=== PATIENT | female | born 1995 | race Caucasian/White ===

== ENCOUNTER 2016-12-09 14:40 | Emergency (ER) | payer BC, OTHER ==
[2016-12-09] MEDS ORDERED: ONDANSETRON 4 MG TAB.RAPDIS SL ONE (17:59)
--- NOTE | 2016-12-09 18:01 | ER Document Report ---
ED Medical Screen (RME) - General Chief Complaint: Abdominal Pain Stated Complaint: ABDOMINAL PAIN Time Seen by Provider: 12/09/16 17:56 Mode of Arrival: Ambulatory Information source: Patient TRAVEL OUTSIDE OF THE [place] IN LAST 30 DAYS: No - HPI Patient complains to provider of: Pelvic pain, recent fall, vomiting Onset: Other - 2 days Notes: 12/09/16 18:00 Patient is a 21-year-old female who presents to the emergency room for 2 day history of pelvic pain, vomiting, stomach cramping, cold chills, decreased sleeping, left throat pain, she reports positive sick contacts, and had a slip and fall at work 2 days ago injuring her left pelvis - Related Data Allergies/Adverse Reactions: CATS Allergy (Uncoded 12/09/16 14:44) Past Medical History Renal/ Medical History: Denies: Hx Peritoneal Dialysis Physical Exam - Vital signs Vitals: Temp Pulse Resp BP Pulse Ox 98.4 F 79 16 127/85 H 98 12/09/16 14:44 12/09/16 14:44 12/09/16 14:44 12/09/16 14:44 12/09/16 14:44 Course - Vital Signs Vital signs: Temp Pulse Resp BP Pulse Ox 98.4 F 79 16 127/85 H 98 12/09/16 14:44 12/09/16 14:44 12/09/16 14:44 12/09/16 14:44 12/09/16 14:44
[2016-12-09 18:31] LABS: ABSOLUTE EOSINOPHILS # (AUTO) 0.2 10^3/uL (0.0-0.6); ABSOLUTE LYMPHOCYTES (AUTO) 2.8 10^3/uL (0.5-4.7); ABSOLUTE MONOCYTES (AUTO) 0.6 10^3/uL (0.1-1.4); ABSOLUTE NEUT (AUTO) 8.6 10^3/uL (1.7-8.2); BASOPHILS % (AUTO) 0.2 % (0-2); EOSINOPHILS % (AUTO) 1.4 % (0-6); HEMATOCRIT 39.8 % (36.0-47.0); HEMOGLOBIN 13.2 g/dL (12.0-15.5); HGB HCT DIFFERENCE -0.2; LYMPHOCYTES % (AUTO) 22.9 % (13-45); MEAN CORPUSCULAR HEMOGLOBIN 28.5 pg (27.0-33.4); MEAN CORPUSCULAR HGB CONC 33.3 g/dL (32.0-36.0); MEAN CORPUSCULAR VOLUME 86 fl (80-97); RED BLOOD COUNT 4.65 10^6/uL (3.72-5.28); RED CELL DISTRIBUTION WIDTH 14.4 % (11.5-14.0); SEGMENTED NEUTROPHILS % (AUTO) 70.5 % (42-78); WHITE BLOOD COUNT 12.3 10^3/uL (4.0-10.5)
[2016-12-09 18:32] LABS: APPEARANCE,URINE CLOUDY; BILIRUBIN,URINE NEGATIVE (NEGATIVE); GLUCOSE, URINE NEGATIVE (NEGATIVE); KETONES,URINE TRACE mg/dL (NEGATIVE); LEUKOCYTE ESTERASE,URINE NEGATIVE (NEGATIVE); NITRITE,URINE NEGATIVE (NEGATIVE); PROTEIN,URINE NEGATIVE (NEGATIVE); UROBILINOGEN,URINE NEGATIVE mg/dL (<2.0)
[2016-12-09 18:59] LABS: ALANINE AMINOTRANSFERASE 25 U/L (9-52); ALBUMIN 4.2 g/dL (3.5-5.0); ALKALINE PHOSPHATASE 105 U/L (38-126); ANION GAP 11 (5-19); ASPARTATE AMINO TRANSFERASE 16 U/L (14-36); BILIRUBIN,DIRECT 0.2 mg/dL (0.0-0.4); BILIRUBIN,TOTAL 1.1 mg/dL (0.2-1.3); BLOOD UREA NITROGEN 5 mg/dL (7-20); CALCIUM 9.2 mg/dL (8.4-10.2); CARBON DIOXIDE 25 mmol/L (22-30); CHLORIDE 105 mmol/L (98-107); CREATININE RESULT 0.63 mg/dL (0.52-1.25); GLUCOSE 88 mg/dL (75-110); LIPASE 52.3 U/L (23-300); POTASSIUM 3.9 mmol/L (3.6-5.0); SODIUM 141.1 mmol/L (137-145); TOTAL PROTEIN 7.3 g/dL (6.3-8.2)
[2016-12-09] MEDS ORDERED: HYDROCODONE/ACETAMINOPHEN 5-325 MG TABLET PO ONE (19:13)
[2016-12-09] MEDS ORDERED: IBUPROFEN 800 MG TABLET PO ONE (19:13)
--- NOTE | 2016-12-09 19:16 | ER Document Report ---
ED General - General Chief Complaint: Abdominal Pain Stated Complaint: ABDOMINAL PAIN Time Seen by Provider: 12/09/16 17:56 Mode of Arrival: Ambulatory Information source: Patient Notes: Presents with a 2 day history of abdominal pain, nausea and vomiting. Patient additionally complains of sore throat for the past 3 days. Patient states that abdominal pain comes and goes and make her feel like she needs to have a bowel movement. Patient currently denies any abdominal tenderness at this time. Patient does complain of left inguinal tenderness. Patient does state that she recently fell 2 days ago hitting her knee and jarring her left hip which coincided with when her inguinal tenderness started. Patient denies any fever or urinary symptoms. TRAVEL OUTSIDE OF THE [place] IN LAST 30 DAYS: No - HPI Onset: Other - 2 Days Onset/Duration: Persistent - sore throat, Gone - pelvic pain Quality of pain: Achy Pain Level: 3 Associated symptoms: Nausea, Vomiting, Sore throat. denies: Chest pain, Nonproductive cough, Productive cough, Diarrhea Exacerbated by: Denies Relieved by: Denies Similar symptoms previously: Yes Recently seen / treated by doctor: No - Related Data Allergies/Adverse Reactions: CATS Allergy (Uncoded 12/09/16 14:44) Past Medical History - General Information source: Patient Last Menstrual Period: 12/02/16 - Social History Smoking Status: Never Smoker Chew tobacco use (# tins/day): No Frequency of alcohol use: None Drug Abuse: None Occupation: [employer] Lives with: Family Family History: None Patient has suicidal ideation: No Patient has homicidal ideation: No - Medical History Medical History: Other - vit d Renal/ Medical History: Denies: Hx Peritoneal Dialysis Past Surgical History: Reports: Hx Appendectomy - Immunizations Hx Diphtheria, Pertussis, Tetanus Vaccination: Yes Review of Systems - Review of Systems Constitutional: No symptoms reported. denies: Fever EENT: Throat pain Cardiovascular: No symptoms reported. denies: Chest pain Respiratory: No symptoms reported. denies: Cough, Short of breath Gastrointestinal: Abdominal pain - now gone, Nausea, Vomiting. denies: Diarrhea , Poor appetite Genitourinary: No symptoms reported. denies: Dysuria, Flank pain Female Genitourinary: No symptoms reported. denies: Vaginal discharge, Vaginal bleeding Musculoskeletal: Other - left groin pain. denies: Back pain Skin: No symptoms reported Hematologic/Lymphatic: No symptoms reported Neurological/Psychological: No symptoms reported Physical Exam - Vital signs Vitals: Temp Pulse Resp BP Pulse Ox 98.4 F 79 16 127/85 H 98 12/09/16 14:44 12/09/16 14:44 12/09/16 14:44 12/09/16 14:44 12/09/16 14:44 - General General appearance: Appears well, Alert In distress: None - HEENT Head: Normocephalic, Atraumatic Eyes: Normal Conjunctiva: Normal Nasal: Normal Mouth/Lips: Normal Mucous membranes: Normal Pharynx: Erythema, Tonsillar hypertrophy - L>R, 2+. No: Exudate, Peritonsillar abscess Neck: Normal, Supple. No: Lymphadenopathy, Meningismus - Respiratory Respiratory status: No respiratory distress Chest status: Nontender Breath sounds: Normal. No: Rales, Rhonchi, Stridor, Wheezing Chest palpation: Normal - Cardiovascular Rhythm: Regular Heart sounds: S1 appreciated, S2 appreciated Murmur: No - Abdominal Inspection: Normal Distension: No distension Bowel sounds: Normal Tenderness: Nontender Organomegaly: No organomegaly - Back Back: Normal, Nontender. No: CVA tenderness, Vertebra tenderness - Extremities General upper extremity: Normal inspection, Normal ROM General lower extremity: Normal ROM Hip: Tender - Left inguinal tenderness with palpation, no deformity or dislocation, Pain with ROM. No: Deformity, Dislocation, Unable to bear weight Thigh: Normal, Nontender Knee: Normal, Nontender - Neurological Neuro grossly intact: Yes Cognition: Normal [place] Coma Scale Eye Opening: Spontaneous [place] Coma Scale Verbal: Oriented [place] Coma Scale Motor: Obeys Commands [place] Coma Scale Total: 15 - Psychological Associated symptoms: Normal affect, Normal mood - Skin Skin Temperature: Warm Skin Moisture: Dry Skin Color: Normal Course - Re-evaluation Re-evalutation: 12/09/16 20:22 Patient's abdomen soft, nontender. Patient states nausea has resolved. Discussed results of patient diagnostic test with patient. Discussed worsening signs or symptoms that she should return immediately for. Patient verbalized understanding and agrees with plan of care. - Vital Signs Vital signs: Temp Pulse Resp BP Pulse Ox 98.4 F 74 18 100/74 100 12/09/16 20:51 12/09/16 20:51 12/09/16 20:51 12/09/16 20:51 12/09/16 20:51 - Laboratory Result Diagrams: 12/09/16 18:10 12/09/16 18:10 Laboratory results interpreted by me: 12/09/16 12/09/16 12/09/16 18:10 18:10 18:10 WBC 12.3 H RDW 14.4 H Absolute Neutrophils 8.6 H BUN 5 L Urine Ketones TRACE H 12/09/16 20:22 Labs- Entire Visit 12/09/16 12/09/16 12/09/16 18:10 18:10 18:10 WBC 12.3 H RBC 4.65 Hgb 13.2 Hct 39.8 MCV 86 MCH 28.5 MCHC 33.3 RDW 14.4 H Plt Count 366 Seg Neutrophils % 70.5 Lymphocytes % 22.9 Monocytes % 5.0 Eosinophils % 1.4 Basophils % 0.2 Absolute Neutrophils 8.6 H Absolute Lymphocytes 2.8 Absolute Monocytes 0.6 Absolute Eosinophils 0.2 Absolute Basophils 0.0 Sodium 141.1 Potassium 3.9 Chloride 105 Carbon Dioxide 25 Anion Gap 11 BUN 5 L Creatinine 0.63 Est GFR ( Amer) > 60 Est GFR (Non-Af Amer) > 60 Glucose 88 Calcium 9.2 Total Bilirubin 1.1 Direct Bilirubin 0.2 Indirect Bilirubin Not Reportable Neonat Total Bilirubin Not Reportable AST 16 ALT 25 Alkaline Phosphatase 105 Total Protein 7.3 Albumin 4.2 Lipase 52.3 Serum HCG, Qual NEGATIVE Urine Color Urine Appearance Urine pH Ur Specific [place] Urine Protein Urine Glucose (UA) Urine Ketones Urine Blood Urine Nitrite Urine Bilirubin Urine Urobilinogen Ur Leukocyte Esterase Urine WBC (Auto) Urine RBC (Auto) Squamous Epi Cells Auto Urine Mucus (Auto) Urine Ascorbic Acid Group A Strep Rapid 12/09/16 12/09/16 18:10 19:25 WBC RBC Hgb Hct MCV MCH MCHC RDW Plt Count Seg Neutrophils % Lymphocytes % Monocytes % Eosinophils % Basophils % Absolute Neutrophils Absolute Lymphocytes Absolute Monocytes Absolute Eosinophils Absolute Basophils Sodium Potassium Chloride Carbon Dioxide Anion Gap BUN Creatinine Est GFR ( Amer) Est GFR (Non-Af Amer) Glucose Calcium Total Bilirubin Direct Bilirubin Indirect Bilirubin Neonat Total Bilirubin AST ALT Alkaline Phosphatase Total Protein Albumin Lipase Serum HCG, Qual Urine Color YELLOW Urine Appearance CLOUDY Urine pH 5.0 Ur Specific [place] 1.030 Urine Protein NEGATIVE Urine Glucose (UA) NEGATIVE Urine Ketones TRACE H Urine Blood NEGATIVE Urine Nitrite NEGATIVE Urine Bilirubin NEGATIVE Urine Urobilinogen NEGATIVE Ur Leukocyte Esterase NEGATIVE Urine WBC (Auto) 2 Urine RBC (Auto) 1 Squamous Epi Cells Auto 16 Urine Mucus (Auto) MANY Urine Ascorbic Acid NEGATIVE Group A Strep Rapid NEGATIVE 12/10/16 06:36 - Diagnostic Test Radiology reviewed: Reports reviewed Discharge - Discharge Clinical Impression: Sore throat (viral) Sprain of left hip Qualifiers: Encounter type: initial encounter Qualified Code(s): S73.102A - Unspecified sprain of left hip, initial encounter Nausea & vomiting Qualifiers: Vomiting type: unspecified Vomiting Intractability: non-intractable Qualified Code(s): R11.2 - Nausea with vomiting, unspecified Leukocytosis Qualifiers: Leukocytosis type: unspecified Qualified Code(s): D72.829 - Elevated white blood cell count, unspecified Condition: Stable Disposition: HOME, SELF-CARE Instructions: Antinausea Medication ([facility]), Nausea or Vomiting, Nonspecific ([facility] ), Sore Throat ([facility]), Sprain ([facility]), Use of Crutches ([facility]) Additional Instructions: Return immediately for any new or worsening symptoms Followup with your primary care provider, physicians immediate care, call tomorrow to make a followup appointment Prescriptions: Naproxen [Naprosyn 250 Nmg Tablet] 1 tab PO BID #14 tablet Ondansetron HCl [Zofran 4 mg Tablet] 1 - 2 tab PO Q6 PRN #15 tablet PRN Reason: Forms: Return to Work
--- NOTE | 2016-12-09 19:46 | RADIOLOGY REPORT (SQ) ---
EXAM DESCRIPTION: HIP LEFT AP/LATERAL COMPLETED DATE/TIME: 12/09/2016 7:20 pm REASON FOR STUDY: fall, left hip/groin pain COMPARISON: None. NUMBER OF VIEWS: Two views. TECHNIQUE: AP pelvis and additional frog-leg view of the left hip. LIMITATIONS: None. FINDINGS: MINERALIZATION: Normal. LEFT HIP: No fracture or dislocation. No worrisome bone lesions. RIGHT HIP: No fracture or dislocation. No worrisome bone lesions. PUBIS AND ISCHIUM: No fracture. PELVIS: No fracture. SACRUM: No fracture or dislocation. No worrisome bone lesions. LOWER LUMBAR SPINE: No fracture or dislocation. No worrisome bone lesions. No significant disc disea se. SOFT TISSUES: No findings. OTHER: No other significant finding. IMPRESSION: NO RADIOGRAPHIC EVIDENCE OF ACUTE INJURY. TECHNICAL DOCUMENTATION: JOB ID: [id number] [employer]- All Rights Reserved
[2016-12-09] MEDS ORDERED: HYDROCODONE/ACETAMINOPHEN 5-325 MG 6 TAB/DSPK PO PRN (20:24)
[2016-12-09 20:53] VITALS: BP 100/74
== END 2016-12-09 20:54 | disposition home or self-care (01) ==
LOC: ER 14:40
DX: S73.102A Unspecified sprain of left hip, initial encounter (principal); D72.829 Elevated white blood cell count, unspecified; R11.2 Nausea with vomiting, unspecified; J02.9 Acute pharyngitis, unspecified; R10.9 Unspecified abdominal pain; R10.2 Pelvic and perineal pain; W19.XXXA Unspecified fall, initial encounter
CPT/HCPCS: 99283; 36415; 87070; 87086; 87880; 83690; 84703; 85025; 87088; 80053; 81001; 73502; S0119

== ENCOUNTER 2016-12-13 22:20 | Emergency (ER) | payer BC, OTHER ==
[2016-12-14] MEDS ORDERED: ONDANSETRON 4 MG TAB.RAPDIS PO ONE (00:22)
--- NOTE | 2016-12-14 00:23 | ER Document Report ---
ED Medical Screen (RME) - General Chief Complaint: Vomiting Stated Complaint: BACK PAIN/VOMITING Time Seen by Provider: 12/14/16 00:21 Notes: 21-year-old female, chief complaint of new onset left flank pain with nausea and 4-5 episodes of vomiting. He denies any particular area of abdominal pain. She denies dysuria, history of kidney stones, vaginal bleeding, discharge. She denies fevers. She states she is on naproxen for her left hip, denies any other surgeries or medical history. TRAVEL OUTSIDE OF THE [place] IN LAST 30 DAYS: No - Related Data Allergies/Adverse Reactions: CATS Allergy (Uncoded 12/09/16 14:44) Past Medical History Renal/ Medical History: Denies: Hx Peritoneal Dialysis Past Surgical History: Reports: Hx Appendectomy - Immunizations Hx Diphtheria, Pertussis, Tetanus Vaccination: Yes Physical Exam - Vital signs Vitals: Temp Pulse Resp BP Pulse Ox 98.3 F 79 18 102/74 100 12/13/16 22:33 12/13/16 22:33 12/13/16 22:33 12/13/16 22:33 12/13/16 22:33 - Abdominal Tenderness: Tender - Very mild generalized tenderness, nonspecific, no guarding Course - Vital Signs Vital signs: Temp Pulse Resp BP Pulse Ox 98.3 F 79 18 102/74 100 12/13/16 22:33 12/13/16 22:33 12/13/16 22:33 12/13/16 22:33 12/13/16 22:33
[2016-12-14 00:39] LABS: ABSOLUTE BASOPHILS # (AUTO) 0.1 10^3/uL (0.0-0.2); ABSOLUTE EOSINOPHILS # (AUTO) 0.1 10^3/uL (0.0-0.6); ABSOLUTE LYMPHOCYTES (AUTO) 3.7 10^3/uL (0.5-4.7); ABSOLUTE MONOCYTES (AUTO) 0.9 10^3/uL (0.1-1.4); ABSOLUTE NEUT (AUTO) 11.3 10^3/uL (1.7-8.2); BASOPHILS % (AUTO) 0.4 % (0-2); EOSINOPHILS % (AUTO) 0.8 % (0-6); HEMATOCRIT 40.9 % (36.0-47.0); HEMOGLOBIN 13.3 g/dL (12.0-15.5); LYMPHOCYTES % (AUTO) 23.1 % (13-45); MEAN CORPUSCULAR HEMOGLOBIN 27.8 pg (27.0-33.4); MEAN CORPUSCULAR HGB CONC 32.5 g/dL (32.0-36.0); MEAN CORPUSCULAR VOLUME 86 fl (80-97); MONOCYTES % (AUTO) 5.7 % (3-13); RED BLOOD COUNT 4.78 10^6/uL (3.72-5.28); WHITE BLOOD COUNT 16.1 10^3/uL (4.0-10.5)
[2016-12-14 00:52] LABS: ANION GAP 13 (5-19); BLOOD UREA NITROGEN 11 mg/dL (7-20); CALCIUM 9.4 mg/dL (8.4-10.2); CARBON DIOXIDE 25 mmol/L (22-30); CHLORIDE 104 mmol/L (98-107); CREATININE RESULT 0.61 mg/dL (0.52-1.25); GLUCOSE 92 mg/dL (75-110); POTASSIUM 3.7 mmol/L (3.6-5.0); SODIUM 141.7 mmol/L (137-145)
[2016-12-14 01:46] LABS: APPEARANCE,URINE CLOUDY; BILIRUBIN,URINE NEGATIVE (NEGATIVE); GLUCOSE, URINE NEGATIVE (NEGATIVE); KETONES,URINE NEGATIVE (NEGATIVE); LEUKOCYTE ESTERASE,URINE NEGATIVE (NEGATIVE); NITRITE,URINE NEGATIVE (NEGATIVE); PROTEIN,URINE 30 mg/dL (NEGATIVE); URINE SPECIFIC GRAVITY 1.025; UROBILINOGEN,URINE NEGATIVE mg/dL (<2.0)
[2016-12-14] MEDS ORDERED: ONDANSETRON ODT 4 MG TAB (6 TAB/DSPK) PO PRN (01:56)
[2016-12-14 02:00] LABS: BACTERIA,URINE 1+ /HPF
--- NOTE | 2016-12-14 02:01 | ER Document Report ---
ED General - General Chief Complaint: Vomiting Stated Complaint: BACK PAIN/VOMITING Time Seen by Provider: 12/14/16 00:21 Notes: Patient is a 21-year-old female, chief complaint of new onset left flank pain with nausea and 4-5 episodes of vomiting. He denies any particular area of abdominal pain. She denies dysuria, history of kidney stones, vaginal bleeding , discharge. She denies fevers. She states she is on naproxen for her left hip , denies any other surgeries or medical history. TRAVEL OUTSIDE OF THE [place] IN LAST 30 DAYS: No - Related Data Allergies/Adverse Reactions: CATS Allergy (Uncoded 12/14/16 00:23) Past Medical History - General Information source: Patient - Social History Smoking Status: Never Smoker Frequency of alcohol use: None Drug Abuse: None Lives with: Family Family History: None Patient has suicidal ideation: No Patient has homicidal ideation: No - Medical History Medical History: Negative Renal/ Medical History: Denies: Hx Peritoneal Dialysis Past Surgical History: Reports: Hx Appendectomy - Immunizations Hx Diphtheria, Pertussis, Tetanus Vaccination: Yes Review of Systems - Review of Systems Constitutional: No symptoms reported EENT: No symptoms reported Cardiovascular: No symptoms reported Respiratory: No symptoms reported Gastrointestinal: See HPI Genitourinary: See HPI Female Genitourinary: No symptoms reported Musculoskeletal: See HPI Skin: No symptoms reported Hematologic/Lymphatic: No symptoms reported Neurological/Psychological: No symptoms reported Physical Exam - Vital signs Vitals: Temp Pulse Resp BP Pulse Ox 98.3 F 79 18 102/74 100 12/13/16 22:33 12/13/16 22:33 12/13/16 22:33 12/13/16 22:33 12/13/16 22:33 Interpretation: Normal - General General appearance: Appears well, Alert In distress: None - HEENT Head: Normocephalic, Atraumatic Eyes: Normal Conjunctiva: Normal Extraocular movements intact: Yes Eyelashes: Normal Pupils: PERRL Sinus: Normal Nasal: Normal Mouth/Lips: Normal Mucous membranes: Normal Pharynx: Normal Neck: Normal - Respiratory Respiratory status: No respiratory distress Chest status: Nontender Breath sounds: Normal Chest palpation: Normal - Cardiovascular Rhythm: Regular. No: Tachycardia Heart sounds: Normal auscultation, S1 appreciated, S2 appreciated Murmur: No - Abdominal Inspection: Normal Distension: No distension Bowel sounds: Normal Tenderness: Nontender. No: Tender, Guarding Organomegaly: No organomegaly - Back Back: Tender - left lumbar paraspinal tenderness, no midline tenderness, no saddle anesthesia, normal distal N/V exam. No: CVA tenderness - Extremities General upper extremity: Normal inspection, Nontender, Normal color, Normal ROM , Normal temperature General lower extremity: Normal inspection, Nontender, Normal color, Normal ROM , Normal temperature, Normal weight bearing. No: Leigh's sign - Neurological Neuro grossly intact: Yes Cognition: Normal Orientation: AAOx4 [place] Coma Scale Eye Opening: Spontaneous [place] Coma Scale Verbal: Oriented [place] Coma Scale Motor: Obeys Commands [place] Coma Scale Total: 15 Speech: Normal Motor strength normal: LUE, RUE, LLE, RLE Sensory: Normal - Psychological Associated symptoms: Normal affect, Normal mood - Skin Skin Temperature: Warm Skin Moisture: Dry Skin Color: Normal Course - Re-evaluation Re-evalutation: Patient has a very soft abdomen on examination, very unremarkable oral examination, patient is well-appearing, alert, not tachycardic, not hypotensive , no fever. Leukocytosis noted, suspect this was secondary to vomiting, chemistry unremarkable, urinalysis shows some dehydration but no infection. On closer examination she does not have CVA tenderness, she has left paraspinal tenderness in the lumbar region. Recently walking slightly different because of left hip strain. Suspect this is related. No neurological deficits or concerning back abnormalities. No suggestion of epidural abscess, no concerning history. Treating with Zofran for vomiting, this worked very well patient had no symptoms after the initial dose, she probably has a virus based on her benign abdominal exam. Treating with Robaxin for her back. Discussed findings, recommendations, treatment, follow-up, return precautions in detail. Patient states satisfaction and agreement. - Vital Signs Vital signs: Temp Pulse Resp BP Pulse Ox 97.7 F 57 L 18 110/66 100 12/14/16 02:25 12/14/16 02:25 12/14/16 02:25 12/14/16 02:25 12/14/16 02:25 - Laboratory Result Diagrams: 12/14/16 00:28 12/14/16 00:28 Laboratory results interpreted by me: 12/14/16 12/14/16 00:28 00:28 WBC 16.1 H Absolute Neutrophils 11.3 H Urine Protein 30 H Discharge - Discharge Clinical Impression: Flank pain Vomiting Qualifiers: Vomiting type: unspecified Vomiting Intractability: non-intractable Nausea presence: with nausea Qualified Code(s): R11.2 - Nausea with vomiting, unspecified Condition: Stable Disposition: HOME, SELF-CARE Additional Instructions: Continue to take the Zofran for nausea/vomiting, hydrate, rest, I suspect this is viral based on your exam and workup. Your back exam indicates a muscular pain, apply heat to the area, take the prescribed muscle relaxant, also continue your Naprosyn. Follow-up with primary care. Return to emergency department for any concerning or worsening symptoms including uncontrolled vomiting, spiking fever, specific area of abdominal pain , or any other concerning symptoms. Prescriptions: Methocarbamol [Robaxin 500 mg Tablet] 500 mg PO QID PRN #20 tablet PRN Reason: Ondansetron [Zofran Odt 4 mg Tablet] 1 - 2 tab PO Q4H PRN #20 tab.rapdis PRN Reason: For Nausea/Vomiting Forms: Return to Work Referrals: LEILANI FIGUEROA MD [Primary Care Provider] - Follow up as needed
[2016-12-14 02:50] VITALS: BP 110/66
== END 2016-12-14 02:25 | disposition home or self-care (01) ==
LOC: ER 22:20
DX: R11.2 Nausea with vomiting, unspecified (principal); R10.9 Unspecified abdominal pain; M54.9 Dorsalgia, unspecified
CPT/HCPCS: 99284; 36415; 85025; 81025; 80048; 81001; S0119